=== PATIENT | male | born 1995 | race Two or more races ===

== ENCOUNTER 2023-04-03 21:49 | Emergency (ER) | payer OTHER ==
[~2023-04-03] VITALS: Ht 172.7 cm; Wt 111.1 kg
[2023-04-03] MEDS ORDERED: OMEPRAZOLE20 MG PO (22:20)
[2023-04-03 23:54] LABS: HEMATOCRIT 37.2 % (39.0-48.0); HEMOGLOBIN 12.4 g/dL (13-16.00); MEAN CELL VOLUME 83.5 fL (80.0-100.00); MEAN CORPUSCULAR HEMOGLOBIN 27.9 pg (27.00-32.0); MEAN CORPUSCULAR HGB CONC 33.4 g/dl (32.0-36.0); PLATELET COUNT 230 K/uL (150-450); RED BLOOD COUNT 4.45 M/uL (4.00-6.00)
[2023-04-04 00:22] LABS: ABG PH 7.595 (7.35-7.45)
[2023-04-04 00:23] LABS: ABG PO2 120.1 mmHg (80-100); ABG pCO2 19.2 mmHg (35-45); BASE EXCESS -0.7 mmol/l; BICARBONATE 18.2 mmol/l (23-25); SaO2 99.3 %; Tco2 18.8 mmol/l
[2023-04-04 00:24] LABS: allen test SATISFACTORY; o2 21 %; puncture site RADIAL RIGHT
[2023-04-04 00:43] LABS: CALCIUM 9.3 mg/dL (8.5-10.1); CREATININE SERUM 0.84 mg/dL (0.70-1.30); GFR 108.03; POTASSIUM 3.55 mEq/L (3.5-5.1)
[2023-04-04] MEDS ORDERED: TUSNEL LIQUID178 ML PO (02:53)
[2023-04-04] MEDS ORDERED: SINGULAIR10 MG PO (02:53)
[2023-04-04] MEDS ORDERED: MEDROLPACK PO (02:53)
[2023-04-04] MEDS ORDERED: IPRAT-ALBUT 0.5-3 ML IH (02:53)
== END 2023-04-04 03:06 | disposition home or self-care (01) ==
LOC: ER 21:51
PROVIDERS: General Practice
DX: R06.02 Shortness of breath (principal); J45.909 Unspecified asthma, uncomplicated

== ENCOUNTER 2024-06-28 04:21 | Emergency (ER) | payer OTHER ==
[~2024-06-28] VITALS: Ht 175.3 cm; Wt 106.6 kg
[~2024-06-28 04:21] MED LIST: IPRAT-ALBUT 0.5-3 ML IH; MEDROLPACK PO; OMEPRAZOLE20 MG PO; SINGULAIR10 MG PO; TUSNEL LIQUID178 ML PO
[2024-06-28] MEDS ORDERED: CEFTRIAXONE SODIUM 1,000 MG VIAL IM STA (06:15)
[2024-06-28] MEDS ORDERED: KETOROLAC TROMETHAMINE 60 MG VIAL IM STA (06:15)
[2024-06-28] MEDS ORDERED: NEOMYCIN/POLYMYXIN B/HYDROCORT 20 DR/ML BOTTLE OT STA (06:16)
[2024-06-28] MEDS ORDERED: LIDOCAINE HCL 1% 10ML VIAL ONE (06:19)
[2024-06-28] MEDS ORDERED: KETOROLAC TROMETHAMINE 60 MG VIAL IM ONE (06:19)
[2024-06-28] MEDS ORDERED: CEFTRIAXONE SODIUM 1,000 MG VIAL ONE (06:20)
[2024-06-28] MEDS ORDERED: NEOMYCIN/POLYMYXIN B/HYDROCORT 20 DR/ML BOTTLE OT ONE (06:20)
[2024-06-28] MEDS ORDERED: KETO10TA2 PO (06:24)
[2024-06-28] MEDS ORDERED: CORTISPORIN EAR10 M1 OPHT (06:24)
== END 2024-06-28 06:33 ==
LOC: ER 04:22
DX: H60.90 Unspecified otitis externa, unspecified ear (principal)